=== PATIENT | female | born 1980 | race Hispanic/Latino ===

== ENCOUNTER 2021-04-25 17:35 | Emergency (ER) | payer BC ==
[~2021-04-25 17:35] MED LIST: IBUPROFEN600 MG PO; NO; PRENATA4 PO; XANAX0.25 MG PO
== END 2021-04-25 18:00 | disposition left against medical advice (07) | DRG 951 ==
LOC: ED 17:35 → LWOBS 17:59
DX: Z53.21 Procedure and treatment not carried out due to patient leaving prior to being seen by health care provider (principal)